=== PATIENT | female | born 1980 | race Caucasian/White ===

== ENCOUNTER 2023-05-21 08:28 | Day surgery (SDC) | payer SELFPAY ==
--- NOTE | 2023-05-21 08:34 | PCM.OPRPT ---
Report of Operation Date of Procedure: 05/21/23 Pre-Operative Diagnosis: Urinary retention, neurogenic bladder Post-Operative Diagnosis: Same Surgery/Procedure Performed:: Removal InterStim, Axonics stage I and II Surgeon: Rylee Borges Type of Anesthesia: MAC Description of Procedure: The patient is a 42-year-old female who has had an InterStim inserted long enough that the battery is now . She presents for removal of InterStim lead and battery with placement of Axonics lead and battery. Informed consent was obtained. The patient was taken to the operating room placed in a prone position on the operating room table. She was appropriately padded and secured to the table. Anesthesia monitored the head, neck, airway, IV access and vital signs throughout the case. Once anesthesia was appropriately administered, she was prepped and draped in usual sterile fashion. The incision overlying the battery and the lead insertion sites were infiltrated with local anesthetic and opened with a knife. Dissection continued down until the battery was identified and removed from the pocket site. The lead was grasped with a hemostat and was cut and the battery was removed. Dissection at the lead insertion site identified the lead which was then pulled out through the insertion site and with tension, was removed. Using fluoroscopic visualization, the Axonics needle was inserted through the S3 foramen and good stimulation pattern was identified. The dilator was then passed followed by the lead which had good stimulation on all 4 leads. This lead was then tunneled into the existing pocket site, cleaned and dried and inserted into the new battery and secured using the torque wrench. The battery was then placed into the pocket which had been irrigated previously. The pocket site was closed using 3-0 Vicryl interrupted suture followed by 4-0 Monocryl subcuticular closure and skin glue. This process was then repeated on the lead insertion site as well. The patient was then awakened and taken to the recovery room in good condition. There were no complications during this procedure. Grafts/Implants Used: Axonics lead and battery Complications None Admit VTE Documentation VTE Present on Admission: No VTE Mechan Device Prophylaxis: None VTE Pharm Prophylaxis ordered?: No Reason prophylaxis not ordered:: Treatment Not Indicated
--- NOTE | 2023-05-21 08:38 | DCINST_ITS ---
Discharge Instructions Diet Discharge Diet: No restrictions Activity Discharge Activity: Return to Normal Activity (In 2 days) and May Shower (Tomorrow) May resume sexual activity in: 1 week Dressing / Incision Call your doctor if your incision/area has: Continuous Slow Oozing, Sudden Increased Bleeding, Increased Pain/ Swelling, Increased Redness, Foul Smelling Discharge and Swelling at the incision site Call your doctor if you observe: Fever of 101 or Higher, Inability to urinate and Inability to have a bowel movement Remove Dressing in: leave until fall off Follow Up Care Please Follow Up With: Rylee Borges MD When: The office will call the patient to make arrangements Test Results: Test results from this visit will be discussed in further detail at your follow- up appointment, if applicable. Discharge Plan Admission Attending Provider: Rylee Borges Primary Care Provider: Black Larsen Discharge Orders/Prescriptions Prescriptions: New acetaminophen-codeine [acetaminophen-codeine] 300-30 mg tablet 1 - 2 tab PO Q6H PRN PRN (Reason: Pain Score 6-10/10) 3 Days Qty: 10 0RF cephalexin [cephalexin] 500 mg capsule 500 mg PO Q12 3 Days Qty: 6 0RF Continued Uribel 118-10-40.8-36 mg capsule 1 tab PO DAILY PRN PRN (Reason: BLADDER) duloxetine 30 mg capsule,delayed release(DR/EC) 30 mg PO DAILY Patient Comments: TAKE ONE CAPSULE BY MOUTH DAILY DIRECTED albuterol 90 mcg/actuation aerosol 90 mcg inhalation PRN Referrals / Follow Up: Black Larsen MD [Primary Care Provider] - Disposition Disposition (needs filled in before D/C Order can be placed): Home, Self Care
[2023-05-21 09:00] VITALS: BP 120/73; PULSE 78; RESP 18; TEMP 36.8; O2SAT 98; BMI 31.5
[2023-05-21] MEDS: Lactated Ringers 1,000 ML 15 ML IV (09:08)
--- NOTE | 2023-05-21 10:29 | RAD_ITS ---
STUDY: X-RAY - PELVIS REASON FOR EXAM: Female, 42 years old. REMOVE INTERSTIM, AXONICS 1 2 TECHNIQUE: One view of the pelvis was obtained. COMPARISON: None. FINDINGS: Intraoperative imaging provided for InterStim placement. RAD/Pelvis 1 or 2 Views IMPRESSION: Intraoperative imaging provided for InterStim placement. Electronically Signed: Rishabh Montenegro MD at 14:27 EDT ,
[2023-05-21] MEDS: Vancomycin IV 1,000 MG/200 ML BAG 200 MG IV (10:40)
[2023-05-21] MEDS: Lidocaine 1% /Epi 1:100 (50ml) 50 ML VIAL (11:05)
[2023-05-21 11:25] VITALS: BP 120/73; BP 136/76; PULSE 79; RESP 16; TEMP 36.4; O2SAT 100
[2023-05-21 11:30] VITALS: BP 120/73; BP 132/74; PULSE 88; RESP 16; O2SAT 97
[2023-05-21 11:35] VITALS: BP 120/73; BP 137/88; PULSE 79; RESP 16; O2SAT 99
[2023-05-21 11:40] VITALS: BP 120/73; BP 130/79; PULSE 71; RESP 16; TEMP 36.8; O2SAT 100
[2023-05-21 12:20] VITALS: BP 110/72; BP 120/73; PULSE 16; RESP 16; TEMP 36.3; O2SAT 100
== END 2023-05-21 12:29 | disposition home or self-care (01) ==
LOC: SDC 08:32 → AC 08:33
PROVIDERS: PCP Family Medicine; Referring Provider Urology; Visit Provider Urology
PROC: (CPT 64590; principal; 2023-05-21 09:45)
DX: Z45.42 Encounter for adjustment and management of neurostimulator (principal); N31.9 Neuromuscular dysfunction of bladder, unspecified; R33.9 Retention of urine, unspecified; R39.15 Urgency of urination; F41.9 Anxiety disorder, unspecified; Z79.899 Other long term (current) drug therapy
CPT/HCPCS: 64590; 00300; 72170; 76000; J7120; J2405